=== PATIENT | female | born 1990 | race Two or more races ===

== ENCOUNTER 2024-12-30 13:42 | Emergency (ER) | payer OTHER ==
[2024-12-30 13:51] VITALS: BP 116/70; PULSE 62; RESP 20; TEMP 97.9; BMI 23.6
[2024-12-30] MEDS ORDERED: METHOCARBAMOL 500 MG TABLET ONE (15:43)
[2024-12-30] MEDS ORDERED: LIDOCAINE 4% PATCH TP ONE (15:43)
[2024-12-30] MEDS ORDERED: ACETAMINOPHEN 500 MG TABLET (FP) ONE (15:43)
[2024-12-30] MEDS ORDERED: IBUPROFEN 600 MG TABLET (FP) PO ONE (15:43)
[2024-12-30] MEDS: IBUPROFEN 600 MG TABLET (FP) PO ONE (15:48)
[2024-12-30] MEDS: ACETAMINOPHEN 500 MG TABLET (FP) PO ONE (15:49)
[2024-12-30] MEDS: METHOCARBAMOL 500 MG TABLET PO ONE (15:49)
[2024-12-30] MEDS: LIDOCAINE 4% PATCH TP ONE (15:49)
== END 2024-12-30 17:59 | disposition home or self-care (01) ==
LOC: JERFT 13:42
DX: M54.2 Cervicalgia (principal); M25.512 Pain in left shoulder; V43.62XA Car passenger injured in collision with other type car in traffic accident, initial encounter; Y92.410 Unspecified street and highway as the place of occurrence of the external cause
CPT/HCPCS: 71046-TC-FY; 72125-TC; 73000-TC-LT-FY; 73000-TC-RT-FY; 73070-TC-LT-FY; 99284-25